=== PATIENT | male | born 1980 | race Caucasian/White ===

== ENCOUNTER 2022-02-05 08:51 | Emergency (ER) | payer OTHER ==
[2022-02-05 09:45] LABS: BASOPHIL 0.6 % (0-2); EOSINOPHIL 2.6 % (0-5); HCT 47.1 % (42.0-52.0); HGB 16.3 g/dl (13.2-18.0); LYMPHOCYTE 22.7 % (15-48); MCH 30.7 pg (25.0-31.0); MCHC 34.6 g/dL (32.0-36.0); MCV 88.7 fL (78.0-100.0); MONOCYTE 8.4 % (0-12); MPV 9.5 fL (6.0-9.5); NEUTROPHIL 65.5 % (41-80); NRBC 0; PLT 274 K/uL (150-400); RBC 5.31 M/uL (4.70-6.00); RDW 12.1 % (11.5-14.0); WBC 4.7 K/uL (4.0-10.5)
[2022-02-05 10:17] LABS: ALBUMIN 3.7 g/dL (3.4-5.0); BILIRUBIN - TOTAL 0.8 mg/dL (0.2-1.0); BUN/CREAT RATIO (CALC) 24.2 RATIO; CREATININE 0.99 mg/dL (0.67-1.17); GLOBULIN (CALCULATION) 2.7 g/dL; MAGNESIUM 1.9 mg/dL (1.8-2.4); POTASSIUM 4.2 mmol/L (3.5-5.1); TOTAL PROTEIN 6.4 g/dL (6.4-8.2)
== END 2022-02-05 11:35 | disposition home or self-care (01) ==
LOC: FER 08:51
PROVIDERS: Emergency Medicine
DX: R00.2 Palpitations (principal); Z20.822 Contact with and (suspected) exposure to COVID-19
CPT/HCPCS: 36415; 80053; 83735; 84439; 84443; 84484; 85025; 93005; U0002